=== PATIENT | female | born 1965 ===

== ENCOUNTER 2019-03-07 09:36 | Inpatient (IN) | payer OTHER ==
[~2019-03-07] VITALS: Ht 165.1 cm; Wt 72.6 kg
[2019-03-07] MEDS ORDERED: CLONAZEPAM0.5 MG PO (10:05)
[2019-03-07] MEDS ORDERED: CARVEDILOL6.25 MG (10:05)
[2019-03-14] MEDS ORDERED: SIDEROL TABLET1 EACH PO (14:02)
[2019-03-17] MEDS ORDERED: Tylenol #3 PO (10:05)
== END 2019-03-17 10:43 | DRG 743 ==
LOC: O/R 09:45 → EDSTATUS 09:45 → CIR.AMB 03-14 09:45 → EDSTATUS 03-14 09:45 → SURH 03-14 09:45 → SURG-SUITE 03-14 12:15 → O/R 03-14 12:15 → SURH 03-14 15:45 → SURG-SUITE 03-14 17:48
PROVIDERS: ADMIT Obstetrics & Gynecology
PROC: 0UT70ZZ Resection of Bilateral Fallopian Tubes, Open Approach (ICD-10-PCS; 2019-03-14)
PROC: 0TJB8ZZ Inspection of Bladder, Via Natural or Artificial Opening Endoscopic (ICD-10-PCS; 2019-03-14)
PROC: 0UT90ZZ Resection of Uterus, Open Approach (ICD-10-PCS; principal; 2019-03-14 15:45)
PROC: 0UT20ZZ Resection of Bilateral Ovaries, Open Approach (ICD-10-PCS; 2019-03-14 15:45)
DX: D25.1 Intramural leiomyoma of uterus (principal); N73.6 Female pelvic peritoneal adhesions (postinfective); N72 Inflammatory disease of cervix uteri; N83.292 Other ovarian cyst, left side; N83.291 Other ovarian cyst, right side; G89.18 Other acute postprocedural pain